=== PATIENT | male | born 1975 | race American Indian/Alaskan Native ===

== ENCOUNTER 2022-08-08 00:19 | Emergency (ER) | payer OTHER ==
[2022-08-08] MEDS ORDERED: KETOROLAC 30 MG/1 ML INJ IM ONE (09:05)
[2022-08-08] MEDS ORDERED: dexAMETHasone 20 MG/5 ML VIAL IM ONE (09:05)
--- NOTE | 2022-08-08 09:13 | Emergency Department Report ---
ED Back Pain/Injury HPI - General Chief Complaint: Back Pain/Injury Stated Complaint: RIGHT LEG AND BUTT PAIN Source: patient, family Limitations: No Limitations - History of Present Illness Initial Comments: 46-year-old male presents to the ED complaining right back pain x4 days. 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 He denies any numbness or tingling. he denies taking any [id number] medication. He denies any dysuria, IV drug use or steroid use in the past. Patient denies any fever chills or nausea or vomiting. Patient denies any dysuria at present time. MD Complaint: back pain Onset/Timin -: days(s) Similar Symptoms Previously: Yes Place: work Radiation: none Severity: moderate Severity scale (0 -10): 7 Quality: aching Consistency: intermittent Improves With: none Worsens With: movement Associated Symptoms: denies other symptoms - Related Data Previous Rx's Medication Instructions Recorded Last Taken Type Cyclobenzaprine [Flexeril] 10 mg PO HS PRN 30 Days #30 tab 08/08/22 Unknown Rx Ketorolac [Toradol] 10 mg PO Q6H PRN 5 Days #20 tab 08/08/22 Unknown Rx methOCARBAMOL [Robaxin TAB] 750 mg PO Q8H PRN 15 Days #30 tab 08/08/22 Unknown Rx Allergies Allergy/AdvReac Type Severity Reaction Status Date / Time No Known Allergies Allergy Verified 08/08/22 00:48 ED Review of Systems ROS: Stated complaint: RIGHT LEG AND BUTT PAIN Other details as noted in HPI Constitutional: denies: chills, fever Eyes: denies: eye pain, eye discharge, vision change ENT: denies: ear pain, throat pain Respiratory: denies: cough, shortness of breath, wheezing Cardiovascular: denies: chest pain, palpitations Endocrine: no symptoms reported Gastrointestinal: denies: abdominal pain, nausea, diarrhea Genitourinary: denies: urgency, dysuria Musculoskeletal: denies: back pain, joint swelling, arthralgia Skin: denies: rash, lesions Neurological: denies: headache, weakness, paresthesias Psychiatric: denies: anxiety, depression Hematological/Lymphatic: denies: easy bleeding, easy bruising ED Past Medical Hx - Past Medical History Previous Medical History?: No - Surgical History Past Surgical History?: No - Social History Smoking Status: Unknown if ever smoked - Medications Home Medications: Home Medications Medication Instructions Recorded Confirmed Last Taken Type Cyclobenzaprine [Flexeril] 10 mg PO HS PRN 30 Days #30 tab 08/08/22 Unknown Rx Ketorolac [Toradol] 10 mg PO Q6H PRN 5 Days #20 tab 08/08/22 Unknown Rx methOCARBAMOL [Robaxin TAB] 750 mg PO Q8H PRN 15 Days #30 tab 08/08/22 Unknown Rx ED Physical Exam - General Limitations: No Limitations General appearance: alert, in no apparent distress - Head Head exam: Present: atraumatic, normocephalic - Eye Eye exam: Present: normal appearance - ENT ENT exam: Present: mucous membranes moist - Neck Neck exam: Present: normal inspection - Respiratory Respiratory exam: Present: normal lung sounds bilaterally. Absent: respiratory distress - Cardiovascular Cardiovascular Exam: Present: regular rate, normal rhythm. Absent: systolic murmur, diastolic murmur, rubs, gallop - GI/Abdominal GI/Abdominal exam: Present: soft, normal bowel sounds - Rectal Rectal exam: Present: deferred - Extremities Exam Extremities exam: Present: normal inspection - Back Exam Back exam: Present: normal inspection - Neurological Exam Neurological exam: Present: alert, oriented X3 - Psychiatric Psychiatric exam: Present: normal affect, normal mood - Skin Skin exam: Present: warm, dry, intact, normal color. Absent: rash ED Course Vital Signs 08/08/22 00:46 Temperature 98.8 F Pulse Rate 84 Respiratory 20 Rate Blood Pressure 138/85 O2 Sat by Pulse 96 Oximetry ED Medical Decision Making - Medical Decision Making 46-year-old male presents to the ED complaining right back pain x4 days. 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 He denies any numbness or tingling. he denies taking any [id number] medication. He denies any dysuria, IV drug use or steroid use in the past. Patient denies any fever chills or nausea or vomiting. Patient denies any dysuria at present time. Physical examination examination is unremarkable patient has a positive right l eg straight test for sciatica. Patient is given Toradol 30 mg and Decadron 10 mg IM for pain Rechecked the patient is resting quietly , comfortable and feeling better. I discussed the results of diagnostic study, my clinical impression and the plan for further treatment with the patient. Patient agrees with plan and discharge at this present time. All question addressed. I have given the patient instruction regarding a diagnosis ,expectation ,follow- up and return precaution. I explained to the patient that emergent condition may arise and to return to the ED for new worsen and any new persisting condition. I have explained the importance of following up with the primary care physician or referral physician listed below has instructed. The patient verbalized understanding of discharge instruction. Critical care attestation.: If time is entered above; I have spent that time in minutes in the direct care of this critically ill patient, excluding procedure time. ED Disposition Clinical Impression: Back pain Qualifiers: Back pain location: low back pain Chronicity: acute Back pain laterality: right Sciatica presence: with sciatica Sciatica laterality: sciatica of right side Qualified Code(s): M54.41 - Lumbago with sciatica, right side Disposition: 01 HOME / SELF CARE / HOMELESS Is pt being admited?: No Does the pt Need Aspirin: No Condition: Stable Instructions: Acute Back Pain, Adult, Sciatica, Sciatica, [id number] Additional Instructions: Take medication as prescribed Return to the ED for any worsening symptom Prescriptions: Cyclobenzaprine [Flexeril] 10 mg PO HS PRN 30 Days #30 tab PRN Reason: Muscle Spasm methOCARBAMOL [Robaxin TAB] 750 mg PO Q8H PRN 15 Days #30 tab PRN Reason: Spasms Ketorolac [Toradol] 10 mg PO Q6H PRN 5 Days #20 tab PRN Reason: Pain Referrals: [facility] [Provider Group] - 3-5 Days Forms: Work/School Release Form(ED) Time of Disposition: 09:18
[2022-08-08 11:21] VITALS: BP 129/75
== END 2022-08-08 11:21 | disposition home or self-care (01) ==
LOC: ED 00:19
DX: M79.604 Pain in right leg (principal); M54.50 Low back pain, unspecified
CPT/HCPCS: 96372; 99282; J1100; J1885